=== PATIENT | male | born 1955 | race Caucasian/White ===

== ENCOUNTER → 2021-08-23 15:42 | Outpatient (BNVA) | payer MEDICARE, SELFPAY | PROVIDERS: Visit Provider Thoracic Surgery (Cardiothoracic Vascular Surgery) | DX: Z01.89 Encounter for other specified special examinations (principal) | CPT/HCPCS: 87070; 87077; 87176; 87186; 87205 ==

== ENCOUNTER 2021-09-10 09:34 | Outpatient (CLI) | payer MEDICARE, SELFPAY ==
--- NOTE | 2021-09-10 10:00 | CT_ITS ---
WS: [id number] CONTRAST-ENHANCED CT RIGHT FOOT TECHNIQUE: Contrast-enhanced CT RIGHT foot with coronal and sagittal reformatted images. CLINICAL INFORMATION: M86.9 - Osteomyelitis, unspecified COMPARISON: None. DLP: 115.[address] scans at [facility] use at least one of these dose optimization techniques: automated e xposure control; mA and/or kV adjustment per patient size (includes targeted exams where dose is matc hed to clinical indication); or iterative reconstruction. FINDINGS: Prior postoperative changes surgical amputation through the mid metatarsals. Diffuse soft tissue purvi a in the distal foot. No drainable fluid collections. Induration extending into the deep soft tissues . Recommend correlation for infection and cellulitis. Ulceration overlying the residual 1st metatarsa l. Associated lucency with cortical irregularity involving the underlying residual 1st metatarsal rudolph picious for osteomyelitis. Additional ulceration overlying the residual 5th metatarsal with underlying cortical irregularity wit h erosive changes also suspicious for osteomyelitis. Vascular calcification. No evidence of drainable abscess or drainable fluid collection. CT/CT foot RT w con [id number] IMPRESSION: 1. Ulceration with suspected osteomyelitis in the residual underlying 1st meta tarsal and 5th metatarsal described above. 2. No drainable abscess or fluid collection. 3. Diffuse soft tissue induration in the residual distal midfoot suspicious fo r cellulitis
[2021-09-10 10:55] LABS: Blood Urea Nitrogen 34 mg/dL (8-23); Glomerular Filtration Rate 40.3 mL/min (90-130)
[2021-09-10] MEDS: iodixanol 320 mg/mL 100mL Btl IV (11:05)
== END 2021-09-10 09:35 | disposition home or self-care (01) ==
LOC: RAD 09:37
PROVIDERS: Visit Provider Thoracic Surgery (Cardiothoracic Vascular Surgery)
DX: M86.9 Osteomyelitis, unspecified (principal)
CPT/HCPCS: 73701; 82565; 84520

== ENCOUNTER → 2021-09-16 14:55 | Outpatient (BNVA) | payer MEDICARE, SELFPAY | PROVIDERS: Visit Provider Thoracic Surgery (Cardiothoracic Vascular Surgery) | DX: I96 Gangrene, not elsewhere classified; L97.513 Non-pressure chronic ulcer of other part of right foot with necrosis of muscle; T81.31XA Disruption of external operation (surgical) wound, not elsewhere classified, initial encounter; Y83.8 Other surgical procedures as the cause of abnormal reaction of the patient, or of later complication, without mention of misadventure at the time of the procedure; E10.621 Type 1 diabetes mellitus with foot ulcer | CPT/HCPCS: 11042; 99213 ==

== ENCOUNTER 2021-09-16 17:29 | Outpatient (CLI) | payer MEDICARE, SELFPAY ==
--- NOTE | 2021-09-16 18:05 | ECG_ITS ---
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 Measurements Intervals Independence Rate: 80 P: 52 CA: 154 QRS: -1 QRSD: 86 T: 59 QT: 388 QTc: 448 Interpretive Statements SINUS RHYTHM No previous ECG available for comparison Electronically Signed On 09-17-2021 0:50:17 CDT by Tawana Wong M.D. [id number]
--- NOTE | 2021-09-16 18:13 | XRR_ITS ---
PROCEDURE INFORMATION: Exam: XR Chest Exam date and time: 09/16/2021 6:14 PM Age: 66 years old Clinical indication: Screening exam; Other screening; Additional info: Rule out bulous disease TECHNIQUE: Imaging protocol: Radiologic exam of the chest. Views: 2 views. COMPARISON: No relevant prior studies available. FINDINGS: Lungs: Linear atelectasis or scar in the left lung base. The right lung is clear. No consolidation. Pleural spaces: Unremarkable. No pleural effusion. No pneumothorax. Heart/Mediastinum: Unremarkable. No cardiomegaly. Bones/joints: Resection of the distal left clavicle. No acute fracture identified. Old left rib fracture. XR/XR chest 2V* [id number] IMPRESSION: No acute finding.
[2021-09-16 19:13] LABS: Basophils % 0.4 %; Eosinophils # 0.3 10^3/uL (0.0-0.8); Eosinophils % 4.4 %; Hematocrit 30.6 % (42.0-52.0); Hemoglobin 9.4 g/dL (11.7-16.6); Lymphocytes # 1.8 10^3/uL (0.8-4.8); Lymphocytes % 24.9 %; Mean Corpuscular HGB Conc 30.7 g/dL (30.0-36.0); Mean Corpuscular Volume 91.1 fl (80-94); Mean Platelet Volume 9.7 fL (7.4-10.4); Monocytes # 0.6 10^3/uL (0.2-0.9); Monocytes % 8.1 %; Neutrophils # 4.46 10^3/uL (1.8-7.7); Neutrophils % 61.9 %; Nucleated Red Blood Cells % 0 %; Platelet Count 204 10^3/cmm (130-400); Red Blood Count 3.36 10^6/uL (4.1-5.3); Red Cell Distribution Width 14.9 % (12.1-15.1); White Blood Count 7.2 10^3/uL (4.0-10.0)
[2021-09-16 19:44] LABS: Anion Gap 15.8 (5-19); Blood Urea Nitrogen 41 mg/dL (8-23); C Reactive Protein 6.9 mg/L (0.0-4.9); Calcium 9.2 mg/dL (8.5-10.5); Carbon Dioxide 26 mmol/L (22-29); Chloride 100 mmol/L (98-107); Glomerular Filtration Rate 50.4 mL/min (90-130); Glucose 181 mg/dL (65-115); Osmolality Calculated 299 mOsm/kg (285-295); Potassium 4.8 mmol/L (3.5-5.1); Prealbumin 20.4 mg/dL (20-40); Sodium 137 mmol/L (136-145)
[2021-09-16 19:53] LABS: Erythrocyte Sedimentation Rate 15 mm/hr (0-10)
[2021-09-17 10:44] LABS: Estmated Average Glucose 154
== END 2021-09-16 17:30 | disposition home or self-care (01) ==
PROVIDERS: Nurse Practitioner Family; PCP Internal Medicine; Visit Provider Thoracic Surgery (Cardiothoracic Vascular Surgery)
DX: Z13.6 Encounter for screening for cardiovascular disorders (principal); M86.9 Osteomyelitis, unspecified; E10.40 Type 1 diabetes mellitus with diabetic neuropathy, unspecified
CPT/HCPCS: 71046; 80048; 83036; 84134; 85025; 85651; 86140; 93005

== ENCOUNTER → 2021-09-23 16:21 | Outpatient (BNVA) | payer MEDICARE, SELFPAY | PROVIDERS: PCP Internal Medicine; Visit Provider Otolaryngology | DX: H69.80 Other specified disorders of Eustachian tube, unspecified ear (principal) | CPT/HCPCS: 69420; 99204 ==

== ENCOUNTER → 2021-09-24 13:05 | Outpatient (BNVA) | payer MEDICARE, SELFPAY | PROVIDERS: PCP Internal Medicine; Visit Provider Nurse Practitioner Family | DX: E11.621 Type 2 diabetes mellitus with foot ulcer (principal); L97.806 Non-pressure chronic ulcer of other part of unspecified lower leg with bone involvement without evidence of necrosis; L97.513 Non-pressure chronic ulcer of other part of right foot with necrosis of muscle; L97.521 Non-pressure chronic ulcer of other part of left foot limited to breakdown of skin | CPT/HCPCS: 11042; G0277 ==

== ENCOUNTER → 2021-09-25 08:37 | Outpatient (BNVA) | payer MEDICARE, SELFPAY | PROVIDERS: PCP Internal Medicine; Visit Provider Thoracic Surgery (Cardiothoracic Vascular Surgery) | DX: L97.806 Non-pressure chronic ulcer of other part of unspecified lower leg with bone involvement without evidence of necrosis (principal) | CPT/HCPCS: A6210; G0277 ==

== ENCOUNTER 2021-09-26 08:50 | Day surgery (SDC) | payer MEDICARE, SELFPAY ==
[2021-09-26] VITALS (7 sets, daily range): BP systolic 122–152; BP diastolic 65–80; PULSE 66–77; RESP 16–18; TEMP 36.3–37.1; O2SAT 97–100
--- NOTE | 2021-09-26 09:28 | P.ANESASSM_ITS ---
Pre-Anesthetic Assessment Height/Weight: Height 1.91 m Weight 104.326 kg Preop Diagnosis: Eustachian tube dysfunction Operation Date: 09/26/21 10:50 Proposed Procedures p Bilateral tube insertion 49667 - Myringotomy H69.80(Bilateral) - Andrew Lu MD Familial anesthetic complications: None Was Beta Eladia taken within 24 hours: N/A Was Clonidine taken within 24 hours: N/A Last intake: > 8hrs Social No alcohol and No tobacco Exam alert, oriented x 3, clear to auscultation bilaterally and regular rate & rhythm Airway Mallampati: Class III Dentition: full Pulmonary None reported CV/HEM Hypertension GI Gastroesophageal Reflux Disease Metabolic Diabetes Mellitus (type I - has insulin pump, currently paused and off) and Hyperlipidemia [facility] Rheumatoid Arthritis Anesthetic Plan ASA status: 4 Anesthesia: MAC Risk of > 500 ml blood loss (7ml/kg in children): No Medications/Allergies Home Medications Medication Instructions Recorded Confirmed Last Taken Type aspirin 81 mg tablet,delayed 81 mg PO DAILY 08/21/21 09/26/21 09/19/21 History release cholecalciferol (vitamin D3) 125 mcg PO 08/21/21 09/23/21 09/20/21 History mcg (5,000 unit) disintegrating tablet fenofibrate nanocrystallized 145 145 mg PO DAILY 08/21/21 09/26/21 09/25/21 History mg tablet folic acid 1 mg tablet 1 mg PO DAILY 08/21/21 09/26/21 09/20/21 History furosemide 20 mg tablet 20 mg PO DAILY 08/21/21 09/26/21 09/25/21 History insulin aspart U-100 100 unit/mL 5 unit SUBCUT TID 08/21/21 09/26/21 09/25/21 History subcutaneous solution (Novolog U-100 Insulin aspart) lisinopril 40 mg tablet 40 mg PO DAILY 08/21/21 09/26/21 09/25/21 History losartan 50 mg tablet 50 mg PO DAILY 08/21/21 09/26/21 09/25/21 History methotrexate (PF) 25 mg/0.5 mL 25 mg SUBCUT DIRECTED 08/21/21 09/26/21 09/20/21 History subcutaneous auto-injector ondansetron 4 mg disintegrating 4 mg PO Q6H 08/21/21 09/26/2109/20/22 History tablet simvastatin 10 mg tablet 10 mg PO DAILY 08/21/21 09/26/21 09/20/21 History spironolactone 25 mg tablet 25 mg PO DAILY 08/21/21 09/26/21 09/20/21 History ascorbic acid (vitamin C) 1,000 mg 500 mg PO DAILY 08/23/21 09/26/21 09/20/21 History tablet atorvastatin 10 mg tablet 10 mg PO DAILY 08/23/21 09/25/21 Unknown History coenzyme Q10 75 mg capsule (Ultra 75 mg PO DAILY 08/23/21 09/26/21 09/20/21 History CoQ10) ferrous sulfate 325 mg (65 mg 325 mg PO DAILY 08/23/21 09/26/21 09/20/21 History iron) tablet guaifenesin 400 mg tablet 400 mg PO QID 08/23/21 09/25/21 Unknown History loratadine 10 mg capsule 10 mg PO DAILY 08/23/21 09/26/21 09/20/21 History mecobalamin (vitamin B12) 1,000 1,000 mcg sublingual DAILY 08/23/21 09/26/21 09/20/21 History mcg disintegrating tablet,sublingual tholgept-nnwmacjr-mwmfq acid 400 1 tab PO DAILY 08/23/21 09/26/21 09/20/21 History mcg-vit K 20 mcg-lycop 300 mcg tablet (Men's Multivitamin) omeprazole 20 mg capsule,delayed 20 mg PO DAILY 08/23/21 09/26/21 09/26/21 History release linezolid 600 mg tablet (Zyvox) 600 mg PO BID 42 days #84 tabs 08/30/21 09/26/21 09/25/21 Rx Allergies Allergy/AdvReac Type Severity Reaction Status Date / Time hydrocodone Allergy ADR-Nausea Verified 09/25/21 13:56 morphine Allergy ADR-Vomitin Verified 09/26/21 09:06 g procaine [From Novocain] Allergy Unknown Verified 09/23/21 16:41 [facility] Anesthesia Medical History Acquired bilateral hammer toes Arthritis, rheumatoid Cavus foot, acquired Cellulitis of foot, right Chronic ulcer of plantar surface of right midfoot with fat layer exposed Chronic ulcer of right foot Chronic ulcer of right midfoot limited to breakdown of skin Contusion of toe Delayed wound healing Diabetes type 1, controlled Exostosis Foot pain Ganglion of foot, left Hypertrophic toenail Inclusion cyst Infection, skin Onychomycosis Osteomyelitis of toe of right foot Polyneuropathy in diabetes Sesamoiditis Tinea pedis Type 1 diabetes mellitus with diabetic neuropathy, unspecified Type 2 diabetes mellitus with diabetic polyneuropathy Ulcer of foot Surgical History History of amputation of right foot Total knee replacement status Social History Smoking and tobacco status: never smoked Alcohol intake: never Data Anesthesia Cardiac Studies: No Data to Display
[2021-09-26] MEDS: sodium chloride 0.9% 1,000 ML 30 ML IV (09:37)
[2021-09-26 09:42] LABS: Glucose Point of Care 154 mg/dL (70-110)
--- NOTE | 2021-09-26 11:28 | W.PM.OPSUD ---
Surgery/Procedure H&P Update DATE OF PROCEDURE: September 26, 2021 DATE H&P PERFORMED: 09/23/21 H&P UPDATE INFORMATION: I have reviewed H&P completed within last 30 days, I have examined patient prior to procedure and No changes to prior documentation CHANGES TO PREVIOUS DOCUMENTATION: No changes PREOP DIAGNOSIS: Eustachian tube dysfunction PRIMARY INDICATION FOR PROCEDURE: Chronic eustachian tube dysfunction and need for hyperbaric oxygen therapy. PLANNED PROCEDURE: Operation Date: 09/26/21 10:50 Proposed Procedures p Bilateral tube insertion [id number] - Myringotomy H69.80(Bilateral) - Andrew Lu MD
[2021-09-26] MEDS: ofloxacin 0.3% Op Soln 5 mL Btl 3 DROP EAR-BOTH (11:57)
--- NOTE | 2021-09-26 12:03 | PM.OP ---
Operative Report Date of procedure: September 26, 2021 Pre-op diagnosis: Preop Diagnosis Eustachian tube dysfunction Post-op diagnosis: Chronic eustachian tube dysfunction and need for hyperbaric oxygen therapy. Post-op findings: No evidence of otitis media or serous otitis media. Procedure done: Bilateral myringotomy with Dura-Vent tube insertion. Implants: Dura-Vent tubes x2 Specimens removed/disposition: No specimen Pathology: Nothing for pathology Surgeon: Andrew Lu MD Anesthesia: General Estimated blood loss (mL): 0 Complications: No complications encountered Findings: 66-year-old male patient with diabetes and failure to heal lesions on his lower extremities. He therefore needs hyperbaric oxygen therapy. The patient has taken previous hyperbaric oxygen dive and could not tolerate it due to inability to perform Valsalva. The patient had an attempt to place tubes in the office setting but he was simply not tolerant of any manipulation of the canal and tympanic membrane. I was able to perform myringotomies bilaterally under topical phenol anesthesia. Placement of the tubes in the office was impossible. Therefore the patient is being brought to the operating room at this time to place the tubes under anesthesia. Brief History: 66-year-old male patient needing to undergo hyperbaric oxygen therapy and due to inability to perform Valsalva and equalize pressure during the dives he is being brought to the operating room to undergo myringotomy with tube insertion. The procedure risks and complications of been explained in detail. Informed consent was granted and witnessed. The risks included bleeding infection numbness scarring swelling bruising need for additional treatment hearing loss balance system disturbance facial nerve weakness change in taste sensation foreign body reaction cholesteatoma formation and anesthetic risks associated. Procedure: Description of procedure: The patient was placed on the operating table in the supine position. Adequate general LMA anesthesia was obtained. A timeout was accomplished identifying the patient date of plan procedure allergies fire risk and medications given. With all in agreement the procedure continued. A microscope was used to view through an ear speculum in the right external canal. A little bit of cerumen was removed. The old tube that was attempted to be placed in the office was still against the tympanic membrane. That was repositioned. The opening was enlarged slightly creating a adjustment to the myringotomy. The tube was placed into proper position. This was followed by hydrogen peroxide and then ofloxacin drops and cotton placed at the meatus. Attention was then turned to the left ear. No tube was in place in the left canal. The new Dura-Vent tube was selected inserted and positioned. Again the opening previously made was slightly small and needed to be enlarged slightly. Once the tube was in place and positioned again the peroxide was applied followed by ofloxacin drops and cotton at the meatus. Patient was then returned to anesthesia for wake-up and transport to recovery. Patient tolerated the procedure well had no blood loss and arrived in recovery in stable condition.
--- NOTE | 2021-09-26 12:40 | ANE.PACU2 ---
Inpatient post-anesthesia follow up: Airway intact: Yes Vital signs: Temperature 98.0 F Pulse Rate 75 Respiratory Rate 18 Blood Pressure 130/67 Pulse Oximetry 98 Oxygen Delivery Me thod Room Air Oxygen Flow Rate 6 Fraction of Inspir ed Oxygen Hydration adequate: Yes Nausea and vomiting: No Pain level: 1 Mental status: Baseline
== END 2021-09-26 12:55 | disposition home or self-care (01) ==
PROVIDERS: PCP Internal Medicine; Visit Provider Otolaryngology
PROC: (CPT 69420; principal; 2021-09-26 10:40)
DX: H69.83 Other specified disorders of Eustachian tube, bilateral (principal); K21.9 Gastro-esophageal reflux disease without esophagitis; I10 Essential (primary) hypertension; E10.9 Type 1 diabetes mellitus without complications; Z79.4 Long term (current) use of insulin; E78.5 Hyperlipidemia, unspecified; M06.9 Rheumatoid arthritis, unspecified; Z79.82 Long term (current) use of aspirin; E10.622 Type 1 diabetes mellitus with other skin ulcer; L97.809 Non-pressure chronic ulcer of other part of unspecified lower leg with unspecified severity
CPT/HCPCS: 69436; 36416; 82962; G0277; J2405; J2704; J7030

== ENCOUNTER → 2021-09-27 09:06 | Outpatient (BNVA) | payer MEDICARE, SELFPAY | PROVIDERS: PCP Internal Medicine; Visit Provider Nurse Practitioner Family | DX: E11.622 Type 2 diabetes mellitus with other skin ulcer (principal); L97.806 Non-pressure chronic ulcer of other part of unspecified lower leg with bone involvement without evidence of necrosis | CPT/HCPCS: G0277 ==

== ENCOUNTER → 2021-10-02 10:30 | Outpatient (BNVA) | payer MEDICARE, SELFPAY | PROVIDERS: PCP Internal Medicine; Visit Provider Otolaryngology | DX: Z48.89 Encounter for other specified surgical aftercare (principal); E11.621 Type 2 diabetes mellitus with foot ulcer; L97.516 Non-pressure chronic ulcer of other part of right foot with bone involvement without evidence of necrosis; H91.93 Unspecified hearing loss, bilateral; H69.83 Other specified disorders of Eustachian tube, bilateral; Z87.891 Personal history of nicotine dependence | CPT/HCPCS: 99024; G0277 ==

== ENCOUNTER → 2021-10-03 08:21 | Outpatient (BNVA) | payer MEDICARE, SELFPAY | PROVIDERS: PCP Internal Medicine; Visit Provider Nurse Practitioner Family | DX: E11.621 Type 2 diabetes mellitus with foot ulcer (principal); L97.516 Non-pressure chronic ulcer of other part of right foot with bone involvement without evidence of necrosis | CPT/HCPCS: G0277 ==

== ENCOUNTER → 2021-10-04 13:07 | Outpatient (BNVA) | payer MEDICARE, SELFPAY | PROVIDERS: PCP Internal Medicine; Visit Provider Surgery | DX: E11.621 Type 2 diabetes mellitus with foot ulcer (principal); L97.516 Non-pressure chronic ulcer of other part of right foot with bone involvement without evidence of necrosis | CPT/HCPCS: G0277 ==

== ENCOUNTER → 2021-10-07 10:03 | Outpatient (BNVA) | payer MEDICARE, SELFPAY | PROVIDERS: PCP Internal Medicine; Visit Provider Thoracic Surgery (Cardiothoracic Vascular Surgery) | DX: E11.621 Type 2 diabetes mellitus with foot ulcer (principal); L97.426 Non-pressure chronic ulcer of left heel and midfoot with bone involvement without evidence of necrosis | CPT/HCPCS: G0277 ==

== ENCOUNTER → 2021-10-08 09:57 | Outpatient (BNVA) | payer MEDICARE, SELFPAY | PROVIDERS: PCP Internal Medicine; Visit Provider Thoracic Surgery (Cardiothoracic Vascular Surgery) | DX: E11.621 Type 2 diabetes mellitus with foot ulcer (principal); L97.516 Non-pressure chronic ulcer of other part of right foot with bone involvement without evidence of necrosis | CPT/HCPCS: G0277 ==

== ENCOUNTER → 2021-10-09 08:42 | Outpatient (BNVA) | payer MEDICARE, SELFPAY | PROVIDERS: PCP Internal Medicine; Visit Provider Nurse Practitioner Family | DX: E11.621 Type 2 diabetes mellitus with foot ulcer (principal); L97.516 Non-pressure chronic ulcer of other part of right foot with bone involvement without evidence of necrosis; L97.513 Non-pressure chronic ulcer of other part of right foot with necrosis of muscle; T81.31XA Disruption of external operation (surgical) wound, not elsewhere classified, initial encounter; Y83.8 Other surgical procedures as the cause of abnormal reaction of the patient, or of later complication, without mention of misadventure at the time of the procedure; L97.521 Non-pressure chronic ulcer of other part of left foot limited to breakdown of skin | CPT/HCPCS: 97597; A6212; G0277 ==

== ENCOUNTER → 2021-10-10 09:46 | Outpatient (BNVA) | payer MEDICARE, SELFPAY | PROVIDERS: PCP Internal Medicine; Visit Provider Nurse Practitioner Family | DX: E11.621 Type 2 diabetes mellitus with foot ulcer (principal); L97.516 Non-pressure chronic ulcer of other part of right foot with bone involvement without evidence of necrosis | CPT/HCPCS: G0277 ==

== ENCOUNTER → 2021-10-11 09:32 | Outpatient (BNVA) | payer MEDICARE, SELFPAY | PROVIDERS: PCP Internal Medicine; Visit Provider Surgery | DX: E11.621 Type 2 diabetes mellitus with foot ulcer (principal); L97.516 Non-pressure chronic ulcer of other part of right foot with bone involvement without evidence of necrosis | CPT/HCPCS: G0277 ==

== ENCOUNTER → 2021-10-15 09:15 | Outpatient (BNVA) | payer MEDICARE, SELFPAY | PROVIDERS: PCP Internal Medicine; Visit Provider Nurse Practitioner Family | DX: E11.621 Type 2 diabetes mellitus with foot ulcer (principal); L97.516 Non-pressure chronic ulcer of other part of right foot with bone involvement without evidence of necrosis | CPT/HCPCS: G0277 ==

== ENCOUNTER → 2021-10-16 08:05 | Outpatient (BNVA) | payer MEDICARE, SELFPAY | PROVIDERS: PCP Internal Medicine; Visit Provider Thoracic Surgery (Cardiothoracic Vascular Surgery) | DX: E11.621 Type 2 diabetes mellitus with foot ulcer (principal); L97.513 Non-pressure chronic ulcer of other part of right foot with necrosis of muscle; I96 Gangrene, not elsewhere classified; L97.521 Non-pressure chronic ulcer of other part of left foot limited to breakdown of skin | CPT/HCPCS: 97597; G0277 ==

== ENCOUNTER → 2021-10-17 09:11 | Outpatient (BNVA) | payer MEDICARE, SELFPAY | PROVIDERS: PCP Internal Medicine; Visit Provider Nurse Practitioner Family | DX: E11.621 Type 2 diabetes mellitus with foot ulcer (principal); L97.516 Non-pressure chronic ulcer of other part of right foot with bone involvement without evidence of necrosis; M86.8X7 Other osteomyelitis, ankle and foot | CPT/HCPCS: G0277 ==

== ENCOUNTER → 2021-10-18 13:12 | Outpatient (BNVA) | payer MEDICARE, SELFPAY | PROVIDERS: PCP Internal Medicine; Visit Provider Surgery | DX: E11.621 Type 2 diabetes mellitus with foot ulcer (principal); L97.516 Non-pressure chronic ulcer of other part of right foot with bone involvement without evidence of necrosis | CPT/HCPCS: G0277 ==

== ENCOUNTER → 2021-10-21 08:19 | Outpatient (BNVA) | payer MEDICARE, SELFPAY | PROVIDERS: PCP Internal Medicine; Visit Provider Nurse Practitioner Family | DX: E11.621 Type 2 diabetes mellitus with foot ulcer (principal); L97.516 Non-pressure chronic ulcer of other part of right foot with bone involvement without evidence of necrosis; M86.8X7 Other osteomyelitis, ankle and foot | CPT/HCPCS: G0277 ==

== ENCOUNTER → 2021-10-22 09:32 | Outpatient (BNVA) | payer MEDICARE, SELFPAY | PROVIDERS: PCP Internal Medicine; Visit Provider Nurse Practitioner Family | DX: E11.621 Type 2 diabetes mellitus with foot ulcer (principal); L97.516 Non-pressure chronic ulcer of other part of right foot with bone involvement without evidence of necrosis; M86.8X7 Other osteomyelitis, ankle and foot | CPT/HCPCS: G0277 ==

== ENCOUNTER → 2021-10-23 09:17 | Outpatient (BNVA) | payer MEDICARE, SELFPAY | PROVIDERS: PCP Internal Medicine; Visit Provider Nurse Practitioner Family | DX: I96 Gangrene, not elsewhere classified (principal); E11.621 Type 2 diabetes mellitus with foot ulcer; L97.513 Non-pressure chronic ulcer of other part of right foot with necrosis of muscle; L97.511 Non-pressure chronic ulcer of other part of right foot limited to breakdown of skin; L97.516 Non-pressure chronic ulcer of other part of right foot with bone involvement without evidence of necrosis | CPT/HCPCS: 11042; G0277 ==

== ENCOUNTER → 2021-10-24 08:25 | Outpatient (BNVA) | payer MEDICARE, SELFPAY | PROVIDERS: PCP Internal Medicine; Visit Provider Nurse Practitioner Family | DX: E11.621 Type 2 diabetes mellitus with foot ulcer (principal); L97.516 Non-pressure chronic ulcer of other part of right foot with bone involvement without evidence of necrosis; M86.8X7 Other osteomyelitis, ankle and foot | CPT/HCPCS: G0277 ==

== ENCOUNTER → 2021-10-25 08:38 | Outpatient (BNVA) | payer MEDICARE, SELFPAY | PROVIDERS: PCP Internal Medicine; Visit Provider Nurse Practitioner Family | DX: E11.621 Type 2 diabetes mellitus with foot ulcer (principal); L97.516 Non-pressure chronic ulcer of other part of right foot with bone involvement without evidence of necrosis; M19.071 Primary osteoarthritis, right ankle and foot | CPT/HCPCS: G0277 ==

== ENCOUNTER → 2021-10-28 10:17 | Outpatient (BNVA) | payer MEDICARE, SELFPAY | PROVIDERS: PCP Internal Medicine; Visit Provider Thoracic Surgery (Cardiothoracic Vascular Surgery) | DX: I96 Gangrene, not elsewhere classified (principal); E11.621 Type 2 diabetes mellitus with foot ulcer; L97.513 Non-pressure chronic ulcer of other part of right foot with necrosis of muscle; L97.521 Non-pressure chronic ulcer of other part of left foot limited to breakdown of skin; L97.526 Non-pressure chronic ulcer of other part of left foot with bone involvement without evidence of necrosis; M19.071 Primary osteoarthritis, right ankle and foot | CPT/HCPCS: 11042; G0277 ==

== ENCOUNTER → 2021-10-29 08:09 | Outpatient (BNVA) | payer MEDICARE, SELFPAY | PROVIDERS: PCP Internal Medicine; Visit Provider Thoracic Surgery (Cardiothoracic Vascular Surgery) | DX: E11.621 Type 2 diabetes mellitus with foot ulcer (principal); L97.516 Non-pressure chronic ulcer of other part of right foot with bone involvement without evidence of necrosis; M86.8X7 Other osteomyelitis, ankle and foot | CPT/HCPCS: G0277 ==

== ENCOUNTER → 2021-10-31 08:02 | Outpatient (BNVA) | payer MEDICARE, SELFPAY | PROVIDERS: PCP Internal Medicine; Visit Provider Thoracic Surgery (Cardiothoracic Vascular Surgery) | DX: E11.621 Type 2 diabetes mellitus with foot ulcer (principal); L97.516 Non-pressure chronic ulcer of other part of right foot with bone involvement without evidence of necrosis; M86.8X7 Other osteomyelitis, ankle and foot | CPT/HCPCS: G0277 ==

== ENCOUNTER → 2021-11-01 08:11 | Outpatient (BNVA) | payer MEDICARE, SELFPAY | PROVIDERS: PCP Internal Medicine; Visit Provider Surgery | DX: E11.621 Type 2 diabetes mellitus with foot ulcer (principal); L97.516 Non-pressure chronic ulcer of other part of right foot with bone involvement without evidence of necrosis; M86.8X7 Other osteomyelitis, ankle and foot | CPT/HCPCS: G0277 ==

== ENCOUNTER → 2021-11-04 10:10 | Outpatient (BNVA) | payer MEDICARE, SELFPAY | PROVIDERS: PCP Internal Medicine; Visit Provider Thoracic Surgery (Cardiothoracic Vascular Surgery) | DX: I96 Gangrene, not elsewhere classified (principal); E11.621 Type 2 diabetes mellitus with foot ulcer; L97.513 Non-pressure chronic ulcer of other part of right foot with necrosis of muscle; L97.521 Non-pressure chronic ulcer of other part of left foot limited to breakdown of skin | CPT/HCPCS: 11042; 97597; A6212; G0277 ==

== ENCOUNTER → 2021-11-05 08:23 | Outpatient (BNVA) | payer MEDICARE, SELFPAY | PROVIDERS: PCP Internal Medicine; Visit Provider Nurse Practitioner Family | DX: E11.621 Type 2 diabetes mellitus with foot ulcer (principal); L97.516 Non-pressure chronic ulcer of other part of right foot with bone involvement without evidence of necrosis; M86.8X7 Other osteomyelitis, ankle and foot | CPT/HCPCS: G0277 ==

== ENCOUNTER → 2021-11-06 10:13 | Outpatient (BNVA) | payer MEDICARE, SELFPAY | PROVIDERS: PCP Internal Medicine; Visit Provider Thoracic Surgery (Cardiothoracic Vascular Surgery) | DX: I96 Gangrene, not elsewhere classified (principal); E11.621 Type 2 diabetes mellitus with foot ulcer; L97.513 Non-pressure chronic ulcer of other part of right foot with necrosis of muscle; L97.521 Non-pressure chronic ulcer of other part of left foot limited to breakdown of skin; L97.516 Non-pressure chronic ulcer of other part of right foot with bone involvement without evidence of necrosis | CPT/HCPCS: 11042; A6021; G0277 ==

== ENCOUNTER → 2022-04-11 13:06 | Outpatient (BNVA) | payer MEDICARE, SELFPAY | PROVIDERS: PCP Internal Medicine; Visit Provider Thoracic Surgery (Cardiothoracic Vascular Surgery) | DX: I96 Gangrene, not elsewhere classified (principal); E11.622 Type 2 diabetes mellitus with other skin ulcer; L89.892 Pressure ulcer of other site, stage 2 | CPT/HCPCS: 11042; 97597; 99213; A6021; A6212 ×2 ==

== ENCOUNTER → 2022-04-18 14:12 | Outpatient (BNVA) | payer MEDICARE, SELFPAY | PROVIDERS: PCP Internal Medicine; Visit Provider Thoracic Surgery (Cardiothoracic Vascular Surgery) | DX: I96 Gangrene, not elsewhere classified (principal); E11.622 Type 2 diabetes mellitus with other skin ulcer; L89.892 Pressure ulcer of other site, stage 2 | CPT/HCPCS: 11042; 97597 ==

== ENCOUNTER → 2022-04-25 14:51 | Outpatient (BNVA) | payer MEDICARE, SELFPAY | PROVIDERS: PCP Internal Medicine; Visit Provider Thoracic Surgery (Cardiothoracic Vascular Surgery) | DX: I96 Gangrene, not elsewhere classified (principal); E11.622 Type 2 diabetes mellitus with other skin ulcer; L97.812 Non-pressure chronic ulcer of other part of right lower leg with fat layer exposed; E11.621 Type 2 diabetes mellitus with foot ulcer; L97.522 Non-pressure chronic ulcer of other part of left foot with fat layer exposed | CPT/HCPCS: 97597; A6021; A6212 ==

== ENCOUNTER → 2022-05-02 15:32 | Outpatient (BNVA) | payer MEDICARE, SELFPAY | PROVIDERS: PCP Internal Medicine; Visit Provider Thoracic Surgery (Cardiothoracic Vascular Surgery) | DX: I96 Gangrene, not elsewhere classified (principal); E11.622 Type 2 diabetes mellitus with other skin ulcer; L89.892 Pressure ulcer of other site, stage 2 | CPT/HCPCS: 11042; 97597; A6021; A6212 ==

== ENCOUNTER → 2022-05-09 15:49 | Outpatient (BNVA) | payer MEDICARE, SELFPAY | PROVIDERS: PCP Internal Medicine; Visit Provider Thoracic Surgery (Cardiothoracic Vascular Surgery) | DX: I96 Gangrene, not elsewhere classified (principal); E11.622 Type 2 diabetes mellitus with other skin ulcer; E11.621 Type 2 diabetes mellitus with foot ulcer; L89.892 Pressure ulcer of other site, stage 2 | CPT/HCPCS: 97597; A6021; A6212 ==

== ENCOUNTER → 2022-05-16 14:29 | Outpatient (BNVA) | payer MEDICARE, SELFPAY | PROVIDERS: PCP Internal Medicine; Visit Provider Thoracic Surgery (Cardiothoracic Vascular Surgery) | DX: I96 Gangrene, not elsewhere classified (principal); E11.622 Type 2 diabetes mellitus with other skin ulcer; L89.892 Pressure ulcer of other site, stage 2; E11.621 Type 2 diabetes mellitus with foot ulcer | CPT/HCPCS: 11042; 97597; A6212 ==

== ENCOUNTER → 2022-05-23 15:01 | Outpatient (BNVA) | payer MEDICARE, SELFPAY | PROVIDERS: PCP Internal Medicine; Visit Provider Thoracic Surgery (Cardiothoracic Vascular Surgery) | DX: I96 Gangrene, not elsewhere classified (principal); E11.621 Type 2 diabetes mellitus with foot ulcer; L89.892 Pressure ulcer of other site, stage 2 | CPT/HCPCS: 11042; 97597; A6021 ==

== ENCOUNTER → 2022-05-30 13:40 | Outpatient (BNVA) | payer MEDICARE, SELFPAY | PROVIDERS: PCP Internal Medicine; Visit Provider Thoracic Surgery (Cardiothoracic Vascular Surgery) | DX: I96 Gangrene, not elsewhere classified (principal); E11.622 Type 2 diabetes mellitus with other skin ulcer; E11.621 Type 2 diabetes mellitus with foot ulcer; L89.892 Pressure ulcer of other site, stage 2 | CPT/HCPCS: 97597; A6021; A6212 ==

== ENCOUNTER → 2022-06-06 14:16 | Outpatient (BNVA) | payer MEDICARE, SELFPAY | PROVIDERS: PCP Internal Medicine; Visit Provider Thoracic Surgery (Cardiothoracic Vascular Surgery) | DX: I96 Gangrene, not elsewhere classified (principal); E11.621 Type 2 diabetes mellitus with foot ulcer; L89.892 Pressure ulcer of other site, stage 2; Z09 Encounter for follow-up examination after completed treatment for conditions other than malignant neoplasm | CPT/HCPCS: 97597; A6021; A6212 ×2 ==

== ENCOUNTER → 2022-06-13 13:03 | Outpatient (BNVA) | payer MEDICARE, SELFPAY | PROVIDERS: PCP Internal Medicine; Visit Provider Nurse Practitioner Family | DX: E11.621 Type 2 diabetes mellitus with foot ulcer (principal); L89.892 Pressure ulcer of other site, stage 2 | CPT/HCPCS: 97597; A6021; A6212 ==

== ENCOUNTER → 2022-09-22 08:59 | Outpatient (BNVA) | payer MEDICARE, SELFPAY | PROVIDERS: PCP Internal Medicine; Visit Provider Nurse Practitioner Family | DX: Z09 Encounter for follow-up examination after completed treatment for conditions other than malignant neoplasm (principal) ==